=== PATIENT | male | born 1960 | race Caucasian/White ===

== ENCOUNTER → 2020-07-23 | Outpatient (CLI) | payer BC ==
--- NOTE | 2020-07-23 11:01 | RAD ---
RENAL BILAT RENAL DUPLEX CO History: Reason: ACUTE KIDNEY INJURY Comparison: None. Technique: Multiple grayscale, color flow, and Doppler spectral waveform analysis images of the abdominal aorta and renal arteries were obtained. Findings: Abdominal aorta peak systolic velocity: 111 cm/sec. Right main renal artery peak systolic velocity: 125 cm/sec. Degraded evaluation of the mid renal artery due to overlying structures. Right renal artery to aorta ratio: 1.1 Left main renal artery peak systolic velocity: 93 cm/sec. Degraded evaluation of the mid renal artery due to overlying structures. Left renal artery to aorta ratio: 0 point Renal veins are patent. IVC unremarkable. The right kidney measures 10.4 x 5.0 x 4.7 cm. The left kidney measures 10.0 x 5.2 x 6.0 cm. Right inferior intrarenal calculus measures 0.9 cm. Elevated bilateral renal artery resistive indices on the right 0.85 and left 0.77. Cholelithiasis. No gallbladder wall thickening. Urinary bladder is unremarkable. Normal post void residual urinary bladder volume. IMPRESSION: 1. No evidence of renal artery stenosis. 2. Elevated bilateral renal artery resistive indices, may indicate medical renal disease. 3. Left intrarenal calculus. 4. Cholelithiasis. Electronically signed by: Juarez Tellez DO (07/23/2020 10:58 AM) [id number]
== END ==
LOC: US 08:56
PROVIDERS: ATTEND Internal Medicine Nephrology
DX: K80.20 Calculus of gallbladder without cholecystitis without obstruction (principal); N17.9 Acute kidney failure, unspecified; N20.0 Calculus of kidney
CPT/HCPCS: 76770